=== PATIENT | female | born 1995 | race Caucasian/White ===

== ENCOUNTER 2017-03-15 17:08 | Emergency (ER) | payer BC, OTHER ==
[~2017-03-15] VITALS: Ht 170.2 cm; Wt 98.2 kg
[~2017-03-15 17:08] MED LIST: BCPILLS PO
[2017-03-15 17:11] VITALS: Ht 170.2 cm; Wt 98.2 kg
--- NOTE | 2017-03-15 18:13 | DIAGNOSTIC IMAGING REPORT ---
CT SCAN OF THE PARANASAL SINUSES CLINICAL HISTORY: Facial pain. Epistaxis. COMPARISON STUDY: No priors. TECHNIQUE: High-resolution CT scan of the paranasal sinuses is performed. Images are reviewed in the axial, sagittal, and coronal planes. IV contrast was not administered for this examination. A dose lowering technique was utilized adhering to the principles of ALARA. CT DOSE: 393.98 mGy.cm FINDINGS: Maxillary antra: Clear bilaterally. Anterior ethmoid sinuses: Clear. Posterior ethmoid sinuses: Clear. Sphenoid sinuses: Clear. Frontal sinuses: Clear. Ostiomeatal complexes: Patent bilaterally. A Gerri cell is noted on the left. Frontoethmoidal and sphenoethmoidal recesses: Patent bilaterally. Carotid arteries: The carotid arteries are covered noting a septal attachment on the right. Ethmoid roofs: There is slightly asymmetric elevation of the right ethmoid roof as compared to the left. Nasal turbinates: There is mild chris bullosa of the right middle nasal turbinate. Nasal septum: There is minimal leftward deviation of the bony nasal septum. Optic nerves: Covered. Orbits: The bony orbits are intact. Orbital contents are normal in appearance. Calvarium: The imaged calvarium is normal in appearance Mastoid air cells: Well pneumatized. Brain parenchyma: Partially visualized brain parenchyma is within normal limits. IMPRESSION: No paranasal sinus disease is identified. Electronically signed by: Blue Burnette M.D. 03/15/2017 6:12 PM Dictated Date/Time: 03/15/2017 6:09 PM
[2017-03-15 18:15] LABS: BASO % 0.2 %; BASO ABS # 0.02 K/uL (0-0.2); COMPLETE YES; EOS % 0.6 %; HEMATOCRIT 43.7 % (37-47); IG% 0.3 %; LYMPH % 32.9 %; LYMPH ABS # 3.27 K/uL (1.2-3.4); MEAN CELL VOLUME 89.9 fL (80-100); MEAN CORPUSCULAR HEMOGLOBIN 29.4 pg (25-34); MEAN CORPUSCULAR HGB CONC 32.7 g/dl (32-36); MEAN PLATELET VOLUME 9.5 fL (7.4-10.4); MONO % 6.3 %; NEUT % 59.7 %; PLATELET COUNT 356 K/uL (130-400); RED BLOOD COUNT 4.86 M/uL (4.2-5.4); WHITE BLOOD COUNT 9.93 K/uL (4.8-10.8)
[2017-03-15 18:28] LABS: PROTHROMBIN TIME (PATIENT) 10.6 SECONDS (9.0-12.0)
[2017-03-15 18:35] LABS: ALT/SGPT 26 U/L (12-78); BLOOD UREA NITROGEN 11 mg/dl (7-18); BUN/CREATININE RATIO 13.1 (10-20); CALCIUM 9.2 mg/dl (8.5-10.1); CARBON DIOXIDE 28 mmol/L (21-32); CHLORIDE 105 mmol/L (98-107); CREATININE 0.87 mg/dl (0.60-1.20); GLUCOSE 89 mg/dl (70-99); SODIUM 138 mmol/L (136-145)
[2017-03-15 18:38] LABS: ALKALINE PHOSPHATASE 89 U/L (45-117); AST/SGOT 20 U/L (15-37)
[2017-03-15 18:56] VITALS: BP 119/81; PULSE 75; TEMP 36.9; O2SAT 100
--- NOTE | 2017-03-16 20:04 | EMERGENCY ROOM VISIT NOTE ---
ED Visit Note First contact with patient: 17:16 Chief Complaint: I'm having head pains and bleeding from my right nostril. History of Present Illness: Ms. Jacome is a 22-year-old white female who ambulates into the ED complaining of sinus pain/pressure and recurrent epistaxis. Patient reports she has a history of a known deviated septum with surgery pending. Patient reports over the last 3-4 days she has been having constant pressure sensation in her sinuses. She rates this discomfort 5/10. Her pain is nonradiating. Her pain worsens with palpation and bending forward. She has not identified any alleviating factors related to the pain. She has not taken medications for pain prior to arrival at the hospital. She reports over the last 3 days she has had 3 episodes of spontaneous epistaxis from the right nostril while awake and at sleep. These last for about approximately 15 minutes and self resolve. Associated with her symptoms she reports she has having lightheadedness specifically with positional changes. She denies fevers, chills, sweats, skin eruptions, skin color changes, recent facial trauma, nasal congestion, nasal drainage, ear pain, hearing changes, difficulty speaking, difficult swallowing, painful throat, painful talking, drooling neck pain/stiffness, cough, wheezing, shortness of breath, chest pain/ discomfort, nausea, vomiting, decreased appetite. Review of Systems: As noted above in history of present illness. 8 body systems were reviewed and found to be negative as noted above. Past Medical History: Unspecified stomach disorder, nasal septum deviation. Current Medications: Patient denies. Allergies to Medications: Patient denies. Social History: Patient is [employer] student and is employed; she feels safe in her home environment; she denies tobacco use and admits to alcohol use. Physical Examination: Vital Signs: Date Time Temp Pulse Resp B/P (MAP) Pulse Ox O2 Delivery O2 Flow Rate FiO2 03/15/17 18:56 36.9 75 18 119/81 100 03/15/17 18:25 71 18 136/78 100 Room Air 76 143/93 75 145/92 03/15/17 17:11 36.9 71 20 137/84 92 Room Air GENERAL: 22-year-old female in mild distress due to symptoms, nontoxic-appearing , afebrile and hemodynamically stable. NEUROLOGICAL: Awake, alert and oriented to person, place and time. Answering questions appropriately and following commands. Normal gait. Good hand eye coordination. No focal motor or sensory deficits. Romberg test negative. Pronator drift test negative. Cranial nerves II through XII grossly intact. SKIN: Warm, dry and pink. No soft tissue eruptions or trauma noted. HEENT: Atraumatic and normocephalic. No erythema or tenderness over the frontal or maxillary sinuses. External ears are nontender. Auditory canals are pink and patent. Tympanic membranes are pearly singh with normal light reflex. PERRLA. EOMI without nystagmus. Sclera white and conjunctiva pink. No drainage from naris. Oral cavity moist and pink. Pharynx is nonerythematous or edematous. Speech normal. No lymphadenopathy. Trachea midline. No jugular venous distention. BACK: No tenderness over the bony spine. No nuchal rigidity or stiffness. No CVA tenderness. THORAX: Lungs sounds are clear to auscultation and equal bilaterally with symmetrical chest wall. ABDOMEN: Flat, soft and nontender. Positive bowel sounds in all quadrants. No guarding, rigidity or organomegaly. EXTREMITIES: Moves all extremities well on command and with purpose. All distal neurovascular statuses are intact and equal bilaterally. ED Course: Patient is assessed as noted above. Patient's medication list was reviewed. Laboratory Testing: Test 03/15/17 17:43 Range/Units White Blood Count 9.93 4.8-10.8 K/uL Red Blood Count 4.86 4.2-5.4 M/uL Hemoglobin 14.3 12.0-16.0 g/dL Hematocrit 43.7 37-47 % Mean Corpuscular Volume 89.9 80-100 fL Mean Corpuscular Hemoglobin 29.4 25-34 pg Mean Corpuscular Hemoglobin Concent 32.7 32-36 g/dl Platelet Count 356 130-400 K/uL Mean Platelet Volume 9.5 7.4-10.4 fL Neutrophils (%) (Auto) 59.7 % Lymphocytes (%) (Auto) 32.9 % Monocytes (%) (Auto) 6.3 % Eosinophils (%) (Auto) 0.6 % Basophils (%) (Auto) 0.2 % Neutrophils # (Auto) 5.92 1.4-6.5 K/uL Lymphocytes # (Auto) 3.27 1.2-3.4 K/uL Monocytes # (Auto) 0.63 0.11-0.59 K/uL Eosinophils # (Auto) 0.06 0-0.5 K/uL Basophils # (Auto) 0.02 0-0.2 K/uL RDW Standard Deviation 41.2 36.4-46.3 fL RDW Coefficient of Variation 12.6 11.5-14.5 % Immature Granulocyte % (Auto) 0.3 % Immature Granulocyte # (Auto) 0.03 0.00-0.02 K/uL Prothrombin Time 10.6 9.0-12.0 SECONDS Prothromb Time International Ratio 1.0 0.9-1.1 Activated Partial Thromboplast Time 26.7 21.0-31.0 SECONDS Partial Thromboplastin Ratio 1.0 Sodium Level 138 136-145 mmol/L Potassium Level 4.0 3.5-5.1 mmol/L Chloride Level 105 98-107 mmol/L Carbon Dioxide Level 28 21-32 mmol/L Anion Gap 5.0 3-11 mmol/L Blood Urea Nitrogen 11 7-18 mg/dl Creatinine 0.87 0.60-1.20 mg/dl Est Creatinine Clear Calc Drug Dose 123.1 ml/min Estimated GFR () 110.4 Estimated GFR (Non- 95.2 BUN/Creatinine Ratio 13.1 10-20 Random Glucose 89 70-99 mg/dl Calcium Level 9.2 8.5-10.1 mg/dl Total Bilirubin 0.3 0.2-1 mg/dl Direct Bilirubin < 0.1 0-0.2 mg/dl Aspartate Amino Transf (AST/SGOT) 20 15-37 U/L Alanine Aminotransferase (ALT/SGPT) 26 12-78 U/L Alkaline Phosphatase 89 45-117 U/L Total Protein 7.9 6.4-8.2 gm/dl Albumin 4.1 3.4-5.0 gm/dl Sinus CT: Was reviewed by myself and read by the radiologist and shows no paranasal sinus disease identified. Patient was offered pain medications and refused. Patient's case was reviewed with Dr. Hamm; we agreed on diagnostic approach, treatment, disposition and plan. Patient was educated about today's findings and instructed on her treatment plan ; she verbalizes understanding and agreement with this plan. Clinical Impression: Recurrent epistaxis. Sinus pressure. Disposition: Patient discharged home in stable condition; prior to departure she was reassessed and subjectively reported that she was pain and symptom-free. Plan: A she was encouraged to continue her current medications as prescribed. Patient was encouraged use ibuprofen or acetaminophen as needed for sinus pressure. Patient was given a nasal pincher and instructed to use that versus a Q-tip in her nose. Patient was encouraged use one or 2 squirts of Afrin for nasal bleeding or pressure. Patient was encouraged to contact her ENT specialist and request follow-up care and treatment. Patient was encouraged return ED for uncontrolled recurrent nasal bleeding, worsening facial pressure, fevers or any new/concerning symptoms.
== END 2017-03-15 19:00 | disposition home or self-care (01) ==
LOC: C.EDB 17:11 → C.EDD 19:00
DX: R04.0 Epistaxis (principal); J32.9 Chronic sinusitis, unspecified